=== PATIENT | female | born 1995 | race Caucasian/White ===

== ENCOUNTER 2017-10-13 10:10 | Emergency (ER) | payer OTHER ==
[2017-10-13 10:18] VITALS: RESP 18; TEMP 98.1; O2SAT 98
--- NOTE | 2017-10-13 10:39 | EDPHY ---
H & P Stated Complaint: aguayo/n/v hx migraines/etoh yesterday may have triggered Time Seen by Provider: 10/13/17 10:38 - Personal History LMP (Females 10-55): 8-14 Days Ago Current Tetanus/Diphtheria Vaccine: Yes - Medical/Surgical History Hx Asthma: No Hx Chronic Respiratory Disease: No Hx Diabetes: No Hx Cardiac Disease: No Hx Renal Disease: No Hx Cirrhosis: No Hx Alcoholism: No Hx HIV/AIDS: No Hx Splenectomy or Spleen Trauma: No Other PMH: migraines/etoh - Social History Smoking Status: Never smoked Constitutional: Initial Vital Signs Temperature (C) 36.7 C 10/13/17 10:16 Heart Rate 83 10/13/17 10:16 Respiratory Rate 18 10/13/17 10:16 Blood Pressure 119/83 H 10/13/17 10:16 O2 Sat (%) 98 10/13/17 10:16 O2 Delivery Mode Room Air Allergies/Adverse Reactions: Penicillins Allergy (Verified 07/03/15 01:57) Home Medications: Medication Instructions Recorded Bcp 10/13/17 Medical Decision Making ED Course/Re-evaluation: CHIEF COMPLAINT: Migraine HISTORY OF PRESENT ILLNESS: The patient is a 22 y/o female with a history of migraines complaining of migraine symptoms onset this morning. Her migraines have been increasing in frequency over the last several months and she is now having 5-6 migraines per month, but is not on any prophylactic medication for them. She has associated photophobia and "green dots in my vision." Her symptoms feel similar to prior migraines. No weakness, paresthesias, fever, vomiting, recent illness, or recent trauma. She is otherwise healthy. REVIEW OF SYSTEMS: A 10 point review of systems was performed and is negative with the exception of the elements mentioned in the history of present illness. PHYSICAL EXAM: HR, BP, O2 Sat, RR. Temp noted General Appearance: Alert, well hydrated, appropriate, uncomfortable appearing and lying in a dark room. Head: Atraumatic without scalp tenderness or obvious injury Eyes: Pupils equal, round, reactive to light and accommodation, EOMI, no trauma , no injection. Nose: Atraumatic, no rhinorrhea, clear. Throat: Mucus membranes moist. Neck: Supple, nontender, no lymphadenopathy. Respiratory: No retractions, no distress, no wheezes, and no accessory muscle use. Lungs are clear to auscultation bilaterally. Cardiovascular: Regular rate and rhythm, no murmurs, rubs, or gallops. Good capillary refill all extremities. Gastrointestinal: Abdomen is soft, nontender, non-distended, no masses, no rebound, no guarding, no peritoneal signs. Musculoskeletal: Normal active ROM of all extremities, atraumatic. Neurological: Alert, appropriate, and interactive. The patient has non-focal cranial nerves, motor, sensory, and cerebellar exam. Skin: No rashes, good turgor, no nodules on palpation. Past medical history: Migraines, anxiety Past surgical history: Denies Family history: Noncontributory Social history: Lives in [place]. [employer] student. Single. DIFFERENTIAL DIAGNOSIS: The differential diagnosis for the patient's headache included but was not limited to subarachnoid hemorrhage, migraine headache, tension headache and infectious causes such as meningitis, pharyngitis and sinusitis. MEDICAL DECISION MAKING: This is a normally healthy 22 y/o female with a history of migraines who presents with a several-hour history of migraine symptoms that feel the same as prior episodes. She is not on any treatment currently for her migraines and is seeking symptomatic treatment today. No focal deficits on exam. Plan for IV, labs, and pain management. 10mg IV Reglan, 10mg IV Decadron, 30mg IV Toradol, 4mg IV Zofran ordered. 1125: Reevaluated patient. Her headache is feeling much better, though she is still nauseated. Normal neuro exam. She would like to go home and rest there. She will be discharged with Zofran and referral to neurology for follow up. Return precautions discussed. - Data Points Medications Given: Discontinued Medications Dexamethasone (Decadron Injection) 10 mg IVP EDNOW ONE Stop: 10/13/17 10:47 Last Admin: 10/13/17 10:55 Dose: 10 mg Ketorolac Tromethamine (Toradol) 30 mg IVP EDNOW ONE Stop: 10/13/17 10:47 Last Admin: 10/13/17 10:55 Dose: 30 mg Metoclopramide HCl (Reglan Injection) 10 mg IVP EDNOW ONE Stop: 10/13/17 10:47 Last Admin: 10/13/17 10:56 Dose: 10 mg Ondansetron HCl (Zofran) 4 mg IVP EDNOW ONE Stop: 10/13/17 10:47 Last Admin: 10/13/17 10:56 Dose: 4 mg Departure - Departure Disposition: Home, Routine, Self-Care Clinical Impression: Migraine Qualifiers: Migraine type: other Status migrainosus presence: without status migrainosus Intractability: not intractable Qualified Code(s): G43.809 - Other migraine, not intractable, without status migrainosus Condition: Good Instructions: Migraine Headache (ED), Ondansetron (By mouth) Additional Instructions: You can try Excedrin (available [id number]) as directed for migraine headache for a few days. Increase fluid intake. Follow up with neurologist this week for reevaluation and to discuss management of your migraines. Return to the ED for worsening of condition. Referrals: Julián Villalobos MD [Medical Doctor] - As per Instructions Report Scribed for: Hugo Francis Report Scribed by: Jesusita Luz Date of Report: 10/13/17 Time of Report: 10:53
[2017-10-13] MEDS ORDERED: METOCLOPRAMIDE 10 MG/2 ML VIAL IVP ONE (10:46)
[2017-10-13] MEDS ORDERED: KETOROLAC 30 MG/1 ML SDV IVP ONE (10:46)
[2017-10-13] MEDS ORDERED: ONDANSETRON 4 MG/2 ML VIAL IVP ONE (10:46)
[2017-10-13] MEDS ORDERED: DEXAMETHASONE 10 MG/ML VIAL IVP ONE (10:46)
[2017-10-13] MEDS ORDERED: ONDANSETRON 4MG PREPACK#2 BTL TAKEHOME ONE ×2 (11:42)
[2017-10-13 11:47] VITALS: BP 128/76; PULSE 82
== END 2017-10-13 11:47 | disposition home or self-care (01) ==
DX: G43.809 Other migraine, not intractable, without status migrainosus (principal)
CPT/HCPCS: 96374; J1100; J1885; J2405; J2765